=== PATIENT | female | born 1935 | race Caucasian/White ===

== ENCOUNTER 2020-05-04 13:53 | Outpatient (CLI) | payer MEDICARE, SELFPAY ==
--- NOTE | 2020-05-04 14:07 | USCV_ITS ---
Osiris Clark Age: 84 Gender: F : 1935 Exam Date: 05/04/2020 14:32 Ordering Phys: Diane Dia MD ([email or web address]) Technologist: Mayco Morales Exam Location: [facility] [place]: BP: 116 / 67 HR: 56 Rhythm: Sinus Technical Quality: Fair MEASUREMENTS (Male / Female) Normal Values 2D ECHO LV Diastolic Diameter PLAX 5.0 cm 4.2 - 5.9 / 3.9 - 5.3 cm LV Systolic Diameter PLAX 2.7 cm IVS Diastolic Thickness 1.3 cm 0.6 - 1.0 / 0.6 - 0.9 cm IVS Systolic Thickness 1.7 cm LVPW Diastolic Thickness 1.7 cm 0.6 - 1.0 / 0.6 - 0.9 cm LVPW Systolic Thickness 1.6 cm LVOT Diameter 2.0 cm LV Ejection Fraction 2D Teich 73.5 % LV Ejection Fraction MOD 2C 55.6 % LV Ejection Fraction 2C AL 55.3 % LA Diameter 4.1 cm LA Width 4.9 cm LA Height 5.3 cm RA Width 3.6 cm RA Height 4.5 cm Aorta at Sinotubular Diameter 3.0 cm DOPPLER AV Peak Velocity 226.3 cm/s LVOT Peak Velocity 104.0 cm/s AV Area Cont Eq vti 1.7 cm squared AV Area Cont Eq pk 1.4 cm squared MV Area PHT 5.0 cm squared Mitral E to A Ratio 0.7 MV E' Velocity 41.0 cm/s Mitral E to MV E' Ratio 11.1 Mitral E to LV E' Lateral Ratio 10.3 Mitral E to LV E' Septal Ratio 12.2 TR Peak Velocity 186.7 cm/s TR Peak Gradient 13.9 mmHg TV Peak E Velocity 61.0 cm/s Right Atrial Pressure 3.0 mmHg Pulmonary Artery Systolic Pressu 16.9 mmHg PV Peak Velocity 98.0 cm/s FINDINGS Left Ventricle Normal left ventricular size and systolic function. Mild concentric left ventricular hypertrophy. Left ventricular ejection fraction is estimated at 65 %. No regional wall motion abnormalities. Grade 1 diastolic dysfunction with normal to mildly elevated filling pressure. Right Ventricle Normal right ventricular size and systolic function. Right ventricular systolic pressure 21 mmHg. Right Atrium Normal right atrial size. Right atrial pressure estimated at 3 mm Hg. Left Atrium Mildly increased left atrial size. Mitral Valve Moderate mitral annular calcification. Moderately thickened mitral valve. No mitral valve stenosis. Mild mitral valve regurgitation. Aortic Valve Aortic valve not well visualized. Moderately thickened and calcified aortic valve. Mild aortic valve stenosis, peak velocity 2.5 m/s, peak gradient 26 mmHg, mean gradient 10 mmHg, LACIE 1.7 cm squared. No aortic valve regurgitation. Tricuspid Valve Structurally normal tricuspid valve. Pulmonic Valve Pulmonic valve not well visualized. Pericardium No pericardial effusion. Aorta Normal size aortic root and proximal ascending aorta. Normal sized inferior vena cava. CONCLUSIONS 1. Normal left ventricular size and systolic function. Mild concentric left ventricular hypertrophy. Left ventricular ejection fraction is estimated at 65 %. No regional wall motion abnormalities. Grade 1 diastolic dysfunction with normal to mildly elevated filling pressure. 2. Normal pulmonary artery pressure. 3. Aortic valve moderately thickened and calcified and visually appears to have moderate stenosis. Mild aortic valve stenosis, peak velocity 2.5 m/s, peak gradient 26 mmHg, mean gradient 10 mmHg, LACIE 1.7 cm squared by continuity equation. 4. Mild mitral valve regurgitation. Diane Dia MD (Electronically Signed) Final Date: 09 May 2020 13:29 S
== END 2020-05-04 13:54 | disposition home or self-care (01) ==
LOC: US 14:01
PROVIDERS: PCP Family Medicine; Visit Provider Internal Medicine Cardiovascular Disease
DX: I08.0 Rheumatic disorders of both mitral and aortic valves (principal)
CPT/HCPCS: 93308